=== PATIENT | male | born 1965 | race Two or more races ===

== ENCOUNTER 2016-12-07 17:20 | Emergency (ER) | payer OTHER ==
[~2016-12-07] VITALS: Ht 160 cm; Wt 70.5 kg
[2016-12-07 17:25] VITALS: BP 151/91; PULSE 73; RESP 18; O2SAT 97
--- NOTE | 2016-12-07 18:11 | ED.REPORT ---
HPI-General Illness Date of Service Dec 07, 2016 ED Provider: Winston Rea DO The patient is a 51 year old male who presents to the ED due to a swollen, flushed face after chemical exposure at work. The pt works at [employer] and was working with [employer] and the pipe burst. He touched this chemical with gloved hands and then touched his face, and got the chemical on his cheeks and lips. He did not ingest anything. Pt has a flushed, red, swollen , face and states that his face "flores." He does not have any difficulty breathing. Nursing Notes Stated Complaint: EXPOSED TO CHEMICAL -NUTRACHIU Chief Complaint: General Complaint Nursing Notes Reviewed: Yes Allergies: Coded Allergies: No Known Allergies (Unverified Allergy, Unknown, 12/07/16) General Time Seen by MD: 18:11 Chief Complaint Other (flushed face after chemical exposure) Hx Obtained From: Patient Arrived By: Walk-in Sudden in Onset?: Yes Onset Occurred: Just prior to arrival Context of Onset: Other (chemical exposure) Symptom Duration: Since onset Caused by: Accidental Context: Occurred at: Workplace Location: : Face Severity: Current: No pain currently Recent Healthcare: No recent doctor visit, No recent hospitalization Similar Sx Previous: No Past Medical History Past Medical History denies Past Surgical History none reported Family History Noncontributory Smoking History Current Every Day Smoker Social History Alcohol Use: "Social" Drug Use: Denies drug use Other Social History: Local resident Ambulatory Status Independent Review of Systems Full Review of Systems Respiratory: Denies: Shortness of breath Skin: Reports Rash (flushed face ), Reports Swelling (slightly swollen face) Allergy / Immune: Denies: Anaphylaxis, Itching, Sneezing Complete sys rev & neg: except as marked. Physical Exam Vital Signs Vital Signs Date Time Temp Pulse Resp B/P Pulse Ox O2 Delivery O2 Flow Rate FiO2 12/07/16 19:59 74 16 148/89 98 Room Air 12/07/16 17:25 36.6 73 18 151/91 97 Room Air Initial VS: Reviewed Neck: Supple, Non-tender, Full range of motion Respiratory: Breath sounds normal, Clear to auscultation, No respiratory distress Cardiovascular: Regular rate & rhythm, Heart sounds normal, Intact distal pulses Abdomen / GI: Soft, Non-tender Back: No CVA tenderness Lymphatic: No lymphadenopathy Extremities: Vascular intact, Neuro intact, No swelling Neurologic: Alert, Oriented Psychiatric: Mood/affect normal, Behavior normal General/Constitutional: Awake, Alert, Cooperative bright red face Head / Eyes: Normocephalic, Conjunctiva NL Erythema and excoriation across cheeks and upper and lower lips no ocular involvement no mucosal involvement ENT: Atraumatic, Airway patent, Pharynx NL Mouth: Negative: Drooling no mucosal involvement no tongue swelling Neck: Atraumatic, Supple, No meningismus Re-Eval/Medical Decision Med Decision/Clinical Course Healthy 51-year-old male with superficial partial-thickness flores of his face related to chemical use. The wounds were copiously irrigated. The pH of the skin was then physiologic. There was no deep burn. No oral flores aside from the skin surface of the lips. No tongue swelling. Normal oropharyngeal nasofrontal examination. No ocular involvement. He was observed for a total of 4 hours since the onset of the burn. He did not appear to have any systemic signs or symptoms of toxicity. He does have pain which I think is to be expected. There is no specific antidote for this. We copiously irrigated and then washed with soap and water. I will recommend topical antibacterial ointment to the blistered areas. Percocet is prescribed for pain. He is going to be off work until Saturday. Close outpatient follow-up. Routine opiate warnings were given. Counseled Regarding: Diagnosis, Lab results, Need for follow-up, When/why to return to ED Discharge & Departure Primary Impression: Chemical burn of face Encounter type: initial encounter Qualified Code: T20.40XA - Corrosion of unspecified degree of head, face, and neck, unspecified site, initial encounter Disposition: Home Discharge Condition All VS Reviewed: Yes Condition: Stable Additional Instructions: Take 1-2 Percocet every 6 hrs. Watch for signs of infection. If you have any ocular involvement or any new or worsening symptoms, return to the Emergency Department. Avoid contact with the chemical. Call your doctor, or the [facility] tomorrow for a follow up appointment next week. I hope you feel better soon! Referrals: [facility] (PCP) [facility] Scribe Attestation Portion of this note were transcribed by Cydney Del Cid. IDr. Rea, personally performed the history, physical exam, and medical decision-making: I reviewed and confirmed the accuracy for the information in the transcribed note. Signed by: cholo Peterson, 12/07/16 2000 copies to: BART; [facility] Winston Rea DO Dec 07, 2016 18:11 Cydney Del Cid Dec 07, 2016 19:26
[2016-12-07] MEDS ORDERED: oxyCODONE-Acetamin 5-325 mg Tablet PO ONE (19:15)
[2016-12-07 19:59] VITALS: BP 148/89; PULSE 74; RESP 16; O2SAT 98
== END 2016-12-07 19:56 | disposition home or self-care (01) ==
LOC: SED 17:20
DX: T54.91XA Toxic effect of unspecified corrosive substance, accidental (unintentional), initial encounter (principal); T20.66XA Corrosion of second degree of forehead and cheek, initial encounter; T20.62XA Corrosion of second degree of lip(s), initial encounter; T31.0 Burns involving less than 10% of body surface; Y93.89 Activity, other specified; Y92.63 Factory as the place of occurrence of the external cause; Y99.0 Civilian activity done for income or pay; F17.200 Nicotine dependence, unspecified, uncomplicated